=== PATIENT | male | born 1975 | race Two or more races ===

== ENCOUNTER 2019-10-20 09:24 | Emergency (ER) | payer BC ==
[~2019-10-20] VITALS: Ht 167.6 cm; Wt 90.7 kg
[2019-10-20] MEDS ORDERED: METOCLOPRAMIDE HCL 10 MG/2 ML VIAL. IVP ONE (09:45)
[2019-10-20] MEDS ORDERED: KETOROLAC 15 MG/ML VIAL. IVP ONE (09:45)
[2019-10-20] MEDS ORDERED: fentaNYL PF VIAL 100 MCG/2 ML VIAL IV ONE (09:45)
[2019-10-20] MEDS ORDERED: IV NORMAL SALINE 1000ML BAG 1,000 ML IV ONE (09:45)
[2019-10-20] MEDS ORDERED: fentaNYL PF VIAL 100 MCG/2 ML VIAL ONE (09:47)
--- NOTE | 2019-10-20 09:57 | PHYS DOC ---
Adult General Chief Complaint Chief Complaint: FLANK PAIN HPI HPI Patient is a 44-year-old male with no significant past medical history is presenting to the emergency department with left sided flank pain. Patient said that the pain began this morning, it is sharp, he does not associate any alleviating or aggravating factors. He has never felt anything like this before. Patient has no history of kidney stones. Patient states that he is nauseous. Patient denies chest pain, shortness breath, fever, chills, headache, confusion, abdominal pain, constipation, and diarrhea. Patient denies any trauma. Patient denies any rashes. Patient denies hematuria but states that he has not been able to go this morning. Review of Systems Review of Systems Constitutional: Denies fever or chills Eyes: Denies redness or eye pain HENT: Denies nasal congestion or sore throat Respiratory: Denies cough or shortness of breath Cardiovascular: Denies chest pain or palpitations GI: Denies abdominal pain, nausea, or vomiting : Denies dysuria or hematuria Musculoskeletal: Denies back pain or joint pain Integument: Denies rash or skin lesions Neurologic: Denies headache, focal weakness or sensory changes Complete systems were reviewed and found to be within normal limits, except as documented in this note. Current Medications Current Medications Current Medications Medications (Trade) Dose Ordered Sig/Silvio Start Time Stop Time Status Last Admin Dose Admin Fentanyl Citrate (Fentanyl 2ml Vial) 100 mcg STK-MED ONCE 10/20/19 09:47 10/20/19 09:47 DC Ketorolac Tromethamine (Toradol 15mg Vial) 15 mg 1X ONCE 10/20/19 09:45 10/20/19 09:47 DC 10/20/19 09:51 15 MG Metoclopramide HCl (Reglan Vial) 10 mg 1X ONCE 10/20/19 09:45 10/20/19 09:47 DC 10/20/19 09:51 10 MG Sodium Chloride 1,000 ml @ 1,000 mls/hr 1X ONCE 10/20/19 09:45 10/20/19 10:44 DC 10/20/19 09:51 1,000 MLS/HR Tamsulosin HCl (Flomax) 0.4 mg 1X ONCE 10/20/19 10:30 10/20/19 10:31 DC 10/20/19 11:03 0.4 MG Allergies Allergies Allergies Coded Allergies Type Severity Reaction Last Updated Verified No Known Drug Allergies 10/20/19 No Physical Exam Physical Exam Constitutional: Well developed, well nourished, no acute distress, non-toxic appearance HENT: Normocephalic, atraumatic, oropharynx moist Eyes: Conjunctiva normal, no discharge Neck: Normal range of motion, no tenderness, supple Cardiovascular: Heart rate normal, regular rhythm Lungs & Thorax: Bilateral breath sounds clear to auscultation, no wheezing Abdomen: Soft, no tenderness Skin: Warm, dry, no erythema, no rash Back: No tenderness, CVA tenderness on the left Extremities: No tenderness, ROM intact, no edema Neurologic: Alert and oriented X 3, no focal deficits noted Psychologic: Affect normal, judgement normal, mood normal Current Patient Data Vital Signs Vital Signs Date Time Temp Pulse Resp B/P (MAP) Pulse Ox O2 Delivery O2 Flow Rate FiO2 10/20/19 11:08 90 16 155/103 (120) 94 Room Air 10/20/19 09:33 97.5 97.5 Lab Values Laboratory Tests Test 10/20/19 09:45 10/20/19 10:08 White Blood Count 12.6 x10^3/uL (4.0-11.0) H Red Blood Count 4.96 x10^6/uL (4.30-5.70) Hemoglobin 13.6 g/dL (13.0-17.5) Hematocrit 41.1 % (39.0-53.0) Mean Corpuscular Volume 83 fL (79-100) Mean Corpuscular Hemoglobin 28 pg (25-35) Mean Corpuscular Hemoglobin Concent 33 g/dL (31-37) Red Cell Distribution Width 12.9 % (11.5-14.5) Platelet Count 346 x10^3/uL (140-400) Neutrophils (%) (Auto) 66 % (31-73) Lymphocytes (%) (Auto) 25 % (24-48) Monocytes (%) (Auto) 7 % (0-9) Eosinophils (%) (Auto) 2 % (0-3) Basophils (%) (Auto) 1 % (0-3) Neutrophils # (Auto) 8.3 x10^3/uL (1.8-7.7) H Lymphocytes # (Auto) 3.1 x10^3/uL (1.0-4.8) Monocytes # (Auto) 0.8 x10^3/uL (0.0-1.1) Eosinophils # (Auto) 0.3 x10^3/uL (0.0-0.7) Basophils # (Auto) 0.1 x10^3/uL (0.0-0.2) Sodium Level 138 mmol/L (136-145) Potassium Level 4.0 mmol/L (3.5-5.1) Chloride Level 101 mmol/L (98-107) Carbon Dioxide Level 23 mmol/L (21-32) Anion Gap 14 (6-14) Blood Urea Nitrogen 20 mg/dL (8-26) Creatinine 1.1 mg/dL (0.7-1.3) Estimated GFR (Cockcroft-Gault) 73.4 BUN/Creatinine Ratio 18 (6-20) Glucose Level 176 mg/dL (70-99) H Calcium Level 8.9 mg/dL (8.5-10.1) Total Bilirubin 0.8 mg/dL (0.2-1.0) Aspartate Amino Transferase (AST) 39 U/L (15-37) H Alanine Aminotransferase (ALT) 90 U/L (16-63) H Alkaline Phosphatase 99 U/L (46-116) Total Protein 7.9 g/dL (6.4-8.2) Albumin 4.0 g/dL (3.4-5.0) Albumin/Globulin Ratio 1.0 (1.0-1.7) Lipase 130 U/L (73-393) Urine Collection Type Unknown Urine Color Yellow Urine Clarity Clear Urine pH 5.0 Urine Specific [place] 1.025 Urine Protein 100 mg/dL (NEG-TRACE) Urine Glucose (UA) Negative mg/dL (NEG) Urine Ketones (Stick) Negative mg/dL (NEG) Urine Blood Large (NEG) Urine Nitrite Negative (NEG) Urine Bilirubin Negative (NEG) Urine Urobilinogen Dipstick 0.2 mg/dL (0.2 mg/dL) Urine Leukocyte Esterase Negative (NEG) Urine RBC 11-20 /HPF (0-2) Urine WBC 0 /HPF (0-4) Urine Bacteria 0 /HPF (0-FEW) Laboratory Tests 10/20/19 09:45 Laboratory Tests 10/20/19 09:45 EKG EKG [] Radiology/Procedures Radiology/Procedures PROCEDURE: CT ABDOMEN PELVIS WO CONTRAST CT ABDOMEN PELVIS WO CONTRAST Indication: Acute left flank pain. Nausea. Exposure: One or more of the following individualized dose reduction techniques were utilized for this examination: 1. Automated exposure control 2. Adjustment of the mA and/or kV according to patient size 3. Use of iterative reconstruction technique. Comparison: None are available. Technique: No intravenous contrast given. No oral contrast per request. Findings: Evaluation of solid viscera, bowel and vasculature is compromised by the noncontrast technique. Very mild patchy opacities in lung bases, likely atelectasis. Liver is enlarged, about 20 cm. Hypodensity of the liver compatible with steatosis. No evidence of focal lesion. Spleen not enlarged. Pancreas appears unremarkable. No evidence of adrenal mass. Mild left hydronephrosis and ureteric dilatation to the distal most left ureter, adjacent to the ureterovesical junction, where there is a 2 mm calculus. Mild left renal swelling and perinephric fatty stranding. No evidence of right hydronephroureter or urolithiasis. No calcified gallstone. Aorta nonaneurysmal. No significant lymph node enlargement. No significant small bowel distention. No evidence of acute colitis. The appendix appears normal. No evidence of pneumoperitoneum. No significant ascites. Urinary bladder not adequately distended for evaluation. Vertebral body height and alignment are intact. No evidence of aggressive bone destruction. IMPRESSION: 1. Mildly obstructive 2 mm calculus at the distal left ureter. Mild left renal swelling and perinephric stranding could be postobstructive, superimposed process such as pyelonephritis. 2. Hepatomegaly with steatosis. Electronically signed by: Shreyas Hearn MD (10/20/2019 10:18 AM) [facility] Course & Med Decision Making Course & Med Decision Making Pertinent Labs and Imaging studies reviewed. (See chart for details) Patient is a 44-year-old male with no significant past medical history is pres enting to the emergency department with right-sided flank pain. Patient seen and examined at bedside. Physical exam was significant for CVA tenderness on the right. Labs and imaging ordered. Pain addressed. CT scan positive for 2 mm distal obstructing stone and mild left hydroureter. UA negative. Creatinine normal. Patient will be discharged with pain control, Flomax, nausea control. Patient stable for discharge with outpatient follow-up with PCP. Discussed findings and plan with patient and family, who acknowledge understanding and agreement. Fernanda Disclaimer Dragon Disclaimer This electronic medical record was generated, in whole or in part, using a voice recognition dictation system. Departure Departure Impression: Primary Impression: Kidney stone Additional Impression: Elevated transaminase level Disposition: 01 HOME, SELF-CARE Condition: STABLE Patient Instructions: Diet for Kidney Stones, Kidney Stones, [id number] Scripts Ondansetron (ONDANSETRON ODT) 4 Mg Tab.rapdis 1 TAB PO PRN Q6-8HRS for VOMITING, #14 TAB Prov: SHREYAS FAJARDO DO 10/20/19 Hydrocodone/Apap 5-325 (NORCO 5-325 TABLET) 1 Each Tablet 0.5-1 TAB PO PRN Q6HRS PRN for PAIN, #10 TAB 0 Refills Prov: SHREYAS FAJARDO DO 10/20/19 Tamsulosin Hcl (FLOMAX) 0.4 Mg Cap.er.24h 1 CAP PO DAILY, #14 CAP 0 Refills Prov: SHREYAS FAJARDO DO 10/20/19 Problem Qualifiers SHREYAS FAJARDO DO Oct 20, 2019 09:57
[2019-10-20 10:00] LABS: BASO # 0.1 x10^3/uL (0.0-0.2); BASO % 1 % (0-3); EOS # 0.3 x10^3/uL (0.0-0.7); EOS % 2 % (0-3); HEMATOCRIT 41.1 % (39.0-53.0); HEMOGLOBIN 13.6 g/dL (13.0-17.5); LYMPH # 3.1 x10^3/uL (1.0-4.8); LYMPH % 25 % (24-48); MEAN CORPUSCULAR HEMOGLOBIN 28 pg (25-35); MEAN CORPUSCULAR HGB CONC 33 g/dL (31-37); MEAN CORPUSCULAR VOLUME 83 fL (79-100); MONO # 0.8 x10^3/uL (0.0-1.1); MONO % 7 % (0-9); NEUT # 8.3 x10^3/uL (1.8-7.7); NEUT % 66 % (31-73); PLATELET COUNT 346 x10^3/uL (140-400); RED BLOOD COUNT 4.96 x10^6/uL (4.30-5.70); RED CELL DISTRIBUTION WIDTH 12.9 % (11.5-14.5); WHITE BLOOD COUNT 12.6 x10^3/uL (4.0-11.0)
[2019-10-20 10:09] LABS: CALCIUM 8.9 mg/dL (8.5-10.1); CREATININE 1.1 mg/dL (0.7-1.3); GFR 73.4
[2019-10-20 10:15] LABS: TOTAL BILIRUBIN 0.8 mg/dL (0.2-1.0); TOTAL PROTEIN 7.9 g/dL (6.4-8.2)
--- NOTE | 2019-10-20 10:21 | RAD ---
CT ABDOMEN PELVIS WO CONTRAST Indication: Acute left flank pain. Nausea. Exposure: One or more of the following individualized dose reduction techniques were utilized for this examination: 1. Automated exposure control 2. Adjustment of the mA and/or kV according to patient size 3. Use of iterative reconstruction technique. Comparison: None are available. Technique: No intravenous contrast given. No oral contrast per request. Findings: Evaluation of solid viscera, bowel and vasculature is compromised by the noncontrast technique. Very mild patchy opacities in lung bases, likely atelectasis. Liver is enlarged, about 20 cm. Hypodensity of the liver compatible with steatosis. No evidence of focal lesion. Spleen not enlarged. Pancreas appears unremarkable. No evidence of adrenal mass. Mild left hydronephrosis and ureteric dilatation to the distal most left ureter, adjacent to the ureterovesical junction, where there is a 2 mm calculus. Mild left renal swelling and perinephric fatty stranding. No evidence of right hydronephroureter or urolithiasis. No calcified gallstone. Aorta nonaneurysmal. No significant lymph node enlargement. No significant small bowel distention. No evidence of acute colitis. The appendix appears normal. No evidence of pneumoperitoneum. No significant ascites. Urinary bladder not adequately distended for evaluation. Vertebral body height and alignment are intact. No evidence of aggressive bone destruction. IMPRESSION: 1. Mildly obstructive 2 mm calculus at the distal left ureter. Mild left renal swelling and perinephric stranding could be postobstructive, superimposed process such as pyelonephritis. 2. Hepatomegaly with steatosis. Electronically signed by: Shreyas Hearn MD (10/20/2019 10:18 AM) [facility]
[2019-10-20] MEDS ORDERED: TAMS0.4C97 PO (10:30)
[2019-10-20] MEDS ORDERED: HYDR-3164 PO (10:30)
[2019-10-20] MEDS ORDERED: TAMSULOSIN 0.4 MG CAP.ER.24H. PO ONE (10:30)
[2019-10-20] MEDS ORDERED: ONDA4TAB12 PO (10:30)
[2019-10-20 10:40] LABS: BILIRUBIN,URINE NEGATIVE (NEG); CLARITY,URINE CLEAR; COLOR,URINE YELLOW; NITRITE,URINE NEGATIVE (NEG); PROTEIN,URINE 100 mg/dL (NEG-TRACE); UROBILINOGEN,URINE 0.2 mg/dL (0.2 mg/dL)
[2019-10-20 10:57] LABS: BACTERIA,URINE 0 /HPF (0-FEW); WBC,URINE 0 /HPF (0-4)
[2019-10-20 11:08] VITALS: BP 155/103
== END 2019-10-20 11:31 | disposition home or self-care (01) ==
LOC: ER 09:24
DX: N13.2 Hydronephrosis with renal and ureteral calculous obstruction (principal); E83.59 Other disorders of calcium metabolism; R74.0 Nonspecific elevation of levels of transaminase and lactic acid dehydrogenase [LDH]; R10.9 Unspecified abdominal pain; Z79.899 Other long term (current) drug therapy
CPT/HCPCS: 36415; 74176; 80053; 81001; 83690; 85025; 96374; 96375; 99285; J1885; J2765; J3010; J7030; 96361